=== PATIENT | female | born 2000 | race African-American/Black ===

== ENCOUNTER 2018-04-27 09:17 | Emergency (ER) | payer SELFPAY ==
[~2018-04-27] VITALS: Ht 162.6 cm; Wt 68.0 kg
[2018-04-27 09:30] VITALS: BP 116/89
== END 2018-04-27 13:39 | disposition left against medical advice (07) ==
LOC: ER 09:17
DX: M79.641 Pain in right hand (principal); Z53.21 Procedure and treatment not carried out due to patient leaving prior to being seen by health care provider
CPT/HCPCS: 81025